=== PATIENT | female | born 1970 | race Caucasian/White ===

== ENCOUNTER → 2016-10-27 | Outpatient (CLI) | payer BC | LOC: FIMAGING 15:06 | PROVIDERS: ATTEND Orthopaedic Surgery | DX: Z47.1 Aftercare following joint replacement surgery (principal); Z96.651 Presence of right artificial knee joint ==

== ENCOUNTER 2016-12-02 05:56 | Inpatient (IN) | payer BC ==
[2016-12-02] MEDS ORDERED: FAMOTIDINE 20 MG TAB PO ONE (06:00)
[2016-12-02] MEDS ORDERED: TRANEXAMIC ACID 3,000 MG in NS 50 ML IRR ONE (06:00)
[2016-12-02] MEDS ORDERED: CEFAZOLIN 2 GM/DEXTR 100 ML IV ONE (06:00)
[2016-12-02] MEDS ORDERED: ACETAMINOPHEN 325 MG TAB PO ONE (06:00)
[2016-12-02] MEDS ORDERED: ROPI/epiNEPH/KETOROLAC JOINT COCKTAIL IU ONE (06:00)
[2016-12-02] MEDS ORDERED: CHLORHEXIDINE GLUC HIBICLENS 118 ML BTL TP ONE (06:00)
[2016-12-02] MEDS ORDERED: DEXAMETHASONE 4 MG/ML VIAL IVP ONE (06:00)
[2016-12-02] MEDS ORDERED: LR 1,000 ML IV ONE (06:25)
[2016-12-02] MEDS ORDERED: TRANEXAMIC ACID 3,000 MG/50 ML BAG IRR ONE (06:40)
[2016-12-02] MEDS ORDERED: VANCOMYCIN 1 GM VIAL ONE (06:41)
[2016-12-02] MEDS ORDERED: LIDOCAINE 1% 2 ML INJ ONE (06:51)
[2016-12-02] MEDS ORDERED: PROPOFOL/EMULSION 500 MG/50 ML BOTTLE IV ONE ×2 (07:05→08:21)
[2016-12-02] MEDS ORDERED: LIDOCAINE 2% 5 ML SDV ONE (07:05)
[2016-12-02] MEDS ORDERED: MIDAZOLAM 2 MG/2 ML VIAL ONE (07:07)
[2016-12-02] MEDS ORDERED: BUPIVACAINE 0.5% 30 ML SDV ONE (07:12)
[2016-12-02] MEDS ORDERED: fentaNYL 100 MCG/2 ML INJ ONE ×2 (07:48→09:14)
[2016-12-02] MEDS ORDERED: ONDANSETRON 4 MG/2 ML VIAL ONE (07:51)
[2016-12-02] MEDS ORDERED: BISACODYL 10 MG SUPP PR PRN (08:55)
[2016-12-02] MEDS ORDERED: TEMAZEPAM 15 MG CAP PO PRN (08:55)
[2016-12-02] MEDS ORDERED: METOCLOPRAMIDE 10 MG/2 ML VIAL IVP PRN (08:55)
[2016-12-02] MEDS ORDERED: POLYETHYLENE GLYCOL 3350 17 GM PKT PO PRN (08:55)
[2016-12-02] MEDS ORDERED: LACTULOSE 20 GM/30 ML UDCUP PO PRN (08:55)
[2016-12-02] MEDS ORDERED: ONDANSETRON 4 MG/2 ML VIAL IVP PRN (08:55)
[2016-12-02] MEDS ORDERED: DIPHENOXYLATE/ATROPINE LOMOTIL 1 TAB PO PRN (08:55)
[2016-12-02] MEDS ORDERED: ONDANSETRON DISINTEGRATING 4 MG TAB PO PRN (08:55)
[2016-12-02] MEDS ORDERED: PHARMACY PAIN CONSULT 1 EA MISC PRN (08:55)
[2016-12-02] MEDS ORDERED: diphenhydrAMINE 25 MG CAP PO PRN (08:55)
[2016-12-02] MEDS ORDERED: MAGNESIUM HYDROXIDE 30 ML UDCUP PO PRN (08:55)
[2016-12-02] MEDS ORDERED: PROMETHAZINE HCL 25 MG SUPPR PR PRN (08:55)
--- NOTE | 2016-12-02 08:55 | POSTOPPROG ---
Post Op Note Date of Operation: 12/02/16 Surgeon: Caroline Morton Tug Hand: jackie morton Anesthesiologist: dr. stauffer Anesthesia: Spinal, Other (Specify) (adductor canal block) Pre-op Diagnosis: right knee OA Post-op Diagnosis: sameq Indication: right knee pain due to OA that failed conservative measures Procedure: R TKA robot assisted Findings: severe knee OA Inf/Abcess present in the surg proc area at time of surgery?: No EBL: 50-100
[2016-12-02] MEDS ORDERED: traMADol 50 MG TAB PO PRN (08:57)
[2016-12-02] MEDS ORDERED: HYDROmorphONE/DILAUDID 2 MG/ML INJ ONE ×2 (09:20→10:04)
[2016-12-02] MEDS ORDERED: DIAZEPAM 10 MG/2 ML SYR ONE (10:04)
[2016-12-02] MEDS ORDERED: DIAZEPAM 10 MG/2 ML SYR IVP ONE (10:15)
[2016-12-02] MEDS: SENNOSIDES/DOCUSATE SODIUM TAB PO SCH ×2 (13:19→19:41)
[2016-12-02] MEDS: ACETAMINOPHEN 325 MG TAB PO SCH ×3 (13:19→23:59)
[2016-12-02] MEDS: ceFAZolin 2 GM/DEXTROSE 100 ML IV SCH ×2 (13:30→21:33)
[2016-12-02] MEDS: LR 1,000 ML IV SCH (13:30)
[2016-12-02] MEDS: oxyCODONE IR 5 MG TAB PO PRN ×4 (14:07→23:59)
[2016-12-02] MEDS: CYCLOBENZAPRINE 10 MG TAB PO PRN (19:41)
[2016-12-02] MEDS: ASPIRIN 325 MG TAB PO SCH (19:41)
[2016-12-02] MEDS: FAMOTIDINE 20 MG TAB PO SCH (19:42)
[2016-12-03] MEDS: LR 1,000 ML IV SCH (03:12)
[2016-12-03 04:46] LABS: HEMATOCRIT 27.8 % (38.0-47.0); HEMOGLOBIN 9.4 g/dL (12.6-16.3)
[2016-12-03] MEDS: CYCLOBENZAPRINE 10 MG TAB PO PRN (05:52)
[2016-12-03] MEDS: ACETAMINOPHEN 325 MG TAB PO SCH (05:52)
[2016-12-03] MEDS: oxyCODONE IR 5 MG TAB PO PRN (05:53)
[2016-12-03 07:44] VITALS: BP 96/58; PULSE 70; RESP 12; TEMP 98; O2SAT 95
[2016-12-03] MEDS: FAMOTIDINE 20 MG TAB PO SCH (08:13)
[2016-12-03] MEDS: SENNOSIDES/DOCUSATE SODIUM TAB PO SCH (08:13)
[2016-12-03] MEDS: ASPIRIN 325 MG TAB PO SCH (08:13)
--- NOTE | 2016-12-03 08:46 | SOAPPROG ---
SOAP Progress Note Assessment/Plan: Assessment: Mel is doing well POD 1 s/p R TKA 1) pain management: pain is well controlled on oral pain meds. patient had some pain initially, believe flexeril has helped. 2) anemia: level expected initially postop, asymptomatic, continue to monitor 3) VTE ppx: recommend aspirin daily for 3 weeks. cont ESAU reardon. SCDs while in the hospital 4) d/c planning: d/c to home today pending release from PT. 5) clicking and grinding sensation: spoke with nurse yesterday about patient's concern for clicking sensation and grinding while walking. This is normal postop TKA. Dr. Card discussed with patient this am. Plan: 12/03/16 08:43 Subjective: Mel is doing ok this morning, denies SOB, chest pain and n/v. expressed concern for sensation of grinding and clicking in knee while working with PT yesterday. Objective: Vital Signs Temp Pulse Resp BP Pulse Ox 36.6 C 70 12 96/58 L 95 12/03/16 07:43 12/03/16 07:43 12/03/16 07:43 12/03/16 07:43 12/03/16 07:43 Laboratory Results 12/03/16 04:22 12/02/16 12/03/16 12/04/16 05:59 05:59 05:59 Intake Total 3480 Output Total 1680 Balance 1800 RLE: incision dressing is clean and dry, NVI, +pf/df ICD10 Worksheet Patient Problems: Problems Problem Status Onset Primary localized osteoarthritis of right knee Acute
[2016-12-03] MEDS ORDERED: HYDROXYCHLOROQUINE SULFATE 200 MG TAB PO SCH (09:00)
--- NOTE | 2016-12-04 10:21 | GOP ---
[f rep st] OPERATIVE REPORT DATE OF OPERATION: 12/02/2016 SURGEON: Betsy Card MD INSTRUCTIONAL TECHNOLOGY COORDINATOR: MARYAM Dominguez. ANESTHESIA: Spinal. PREOPERATIVE DIAGNOSIS: Right knee osteoarthritis. POSTOPERATIVE DIAGNOSIS: Right knee osteoarthritis. PROCEDURE PERFORMED: Right total knee arthroplasty with computer navigation and robotic assist. FINDINGS/PATHOLOGY: Severe medial and patellofemoral osteoarthritis. ESTIMATED BLOOD LOSS: 30 cc. INDICATIONS: This is a 46-year-old female with severe and progressive pain and deformity of the right knee unresponsive to conservative care. The risks and benefits of surgical intervention were explained in detail. DESCRIPTION OF PROCEDURE: The patient was brought to the operative room and placed on the table in the supine position. Spinal anesthesia was induced without difficulty. A pneumatic tourniquet was applied about the right proximal thigh, and the leg was prepped and draped in a sterile fashion. The leg yanes was applied. After exsanguination by elevation the tourniquet was inflated to 275 mm of mercury. Incision was made anterior medial from the tibial tuberosity to a point 2 cm proximal to the superior pole of the patella. Medial parapatellar arthrotomy was carried out from the superior pole of the patella and posteriorly in line with the fibers of the Type II VMO. The medial collateral ligament was elevated and the infrapatellar fat pad was resected. The patella was everted and the articular surface was excised. A 35 mm patellar button was placed. Attention was turned first to the distal aspect of the right femur. At 3 cm proximal to the medial rise of the femur, 2 percutaneous half pins were placed for fixation of the femoral array. In a similar fashion, 2 pins were placed anteromedial on the tibia for fixation of the tibial array. External land marking and registration of the hip center was performed without difficulty. Internal femoral and tibial registration was carried out without difficulty and the femoral and tibial checkpoints were placed and verified for accuracy. Attention was turned to the femur. The foot print for the size 5 femoral component was cut with the saw using the giftee robotic system and verified for accuracy against the CT based plan. In a similar fashion, saw was used to cut the footprint for the size 5 tibial component using the giftee system and verified for accuracy against the CT based plan. The tibial articular surface was excised without difficulty, followed by the intercondylar box cut. The knee was extended and the remnants of the medial and lateral meniscus were excised. The posterior capsule was injected with ropivacaine, epinephrine and Toradol. A size 5 MIS mini-keel tibial tray was positioned. Trial reduction was then carried out. There was excellent range of motion, alignment, and stability using the 9 mm polyethylene. All trials were then removed. The joint was thoroughly irrigated and carefully dried. Two packages of cement and 2 grams of vancomycin were mixed in the vacuum mixer and placed on the fixation surfaces of all surfaces of the components. The components were implanted and all excess cement was thoroughly removed. The permanent 9 mm polyethylene was placed without difficulty. The tourniquet was deflated and all bleeders were coagulated. The wound was thoroughly irrigated and closed using interrupted sutures of 2-0 Vicryl for the joint capsule. The subcu was closed with 3-0 Vicryl and the skin with 4-0 Monocryl. Dermabond and Steri-Strips were applied followed by a compressive dressing. The patient was then moved from the operating room to the recovery room in good condition, having tolerated the procedure well. /[id number]/MODL MTDD
== END 2016-12-03 09:07 | disposition home or self-care (01) | DRG 470 ==
LOC: F3N 05:56
PROVIDERS: ADMIT Orthopaedic Surgery; ATTEND Orthopaedic Surgery
PROC: 0SRC0J9 Replacement of Right Knee Joint with Synthetic Substitute, Cemented, Open Approach (ICD-10-PCS; principal; 2016-12-02 07:15)
DX: M17.11 Unilateral primary osteoarthritis, right knee (principal)
CPT/HCPCS: 97116-GP; 97161-GP; 97165-GO; C1713; J0171; J0690; J1100; J1170; J1885; J2250; J2405; J2704; J2795; J3010; J3370

== ENCOUNTER 2016-12-04 02:58 | Observation (INO) | payer BC ==
[2016-12-04] MEDS ORDERED: HYDROmorphONE/DILAUDID 1 MG/ML SYR IVP ONE ×2 (03:23→03:50)
[2016-12-04] MEDS ORDERED: NS 1,000 ML IV ONE (03:23)
[2016-12-04] MEDS ORDERED: ONDANSETRON 4 MG/2 ML VIAL IVP ONE (03:23)
--- NOTE | 2016-12-04 03:29 | EDPHY ---
H & P Stated Complaint: severe pain in L knee post knee replace, d/c'd yesterday HPI/ROS: HPI CHIEF COMPLAINT: Right knee pain HISTORY OF PRESENT ILLNESS: This patient very pleasant 46-year-old female, significant past medical history for rheumatoid arthritis, had a total knee replacement done by Dr. Glen Card on Monday. Patient was discharged today on Monday. She tells me that right before getting discharge she was using the bathroom and developed some right knee pain. The pain persisted while at home progressively worse over Monday into Monday night. She now tells me that she had to come to the emergency room because her pain is 10/10. She has been taking oxycodone and tramadol. However has minimal relief. She denies fever, drainage, redness or direct trauma to her knee. She tells me her pain is 10/10. Unable to move her knee. Past Medical History: Rheumatoid arthritis Past Surgical History: Recent right knee surgery Social History: Denies daily use of drugs alcohol tobacco Family History: Noncontributory ROS REVIEW OF SYSTEMS: A comprehensive 10 point review of systems is otherwise negative aside from elements mentioned in the history of present illness. Exam Constitutional triage nursing summary reviewed, vital signs reviewed, awake/ alert. Eyes normal conjunctivae and sclera, EOMI, PERRLA. HENT normal inspection, atraumatic, moist mucus membranes, no epistaxis, neck supple/ no meningismus, no raccoon eyes. Respiratory clear to auscultation bilaterally, normal breath sounds, no respiratory distress, no wheezing. Cardiovascular rate normal, regular rhythm, no murmur, no edema, distal pulses normal. Gastrointestinal soft, non-tender, no rebound, no guarding, normal bowel sounds, no distension, no pulsatile mass. Genitourinary no CVA tenderness. Musculoskeletal right leg: Good sensation, good DP, warm extremity, no significant redness, or swelling of the extremity, no significant drainage, tender palpation with range of motion of the right knee minimal, compartments are soft. no midline vertebral tenderness, full range of motion, no calf swelling, no tenderness of extremities, no meningismus, good pulses, neurovascularly intact. Skin pink, warm, & dry, no rash, skin atraumatic. Neurologic awake, alert and oriented x 3, AAOx3, moves all 4 extremities equally, motor intact, sensory intact, CN II-XII intact, normal cerebellar, normal vision, normal speech. Psychiatric normal mood/affect. Heme/Lymph/Immune no lymphadenopathy. Differential Diagnosis: Includes but is not limited to in a particular order, postoperative pain control, hematoma, DVT, compartment syndrome, infection Medical Decision Making: Plan for this patient x-ray right knee, acute pain control with IV Dilaudid, ultrasound to rule out DVT. Check basic blood work. Also will notify Dr. Glen Card. Re-evaluation: ED x-ray right knee three view. Hardware appears to be in place. No gas. X- ray interpreted by myself. 0356AM: Re-evaluation after 2 mg IV Dilaudid. Patient still has pain. I have ordered her also 10 mg p.o. Flexeril. Blood work has been reviewed as well as x -ray. Ultrasound results are pending for DVT. 0357: I did speak with Jessica Card on-call for [facility] for [facility] I explained the patient would like to be admitted for acute pain control. And despite me given her multiple rounds of IV Dilaudid she still has 10/10 pain. There are no signs of compartment syndrome her compartments are soft she is neurovasculary intact. Patient tells me her pain is 10/10 she is requesting hospital admission which I think is reasonable given postoperative pain. Jessica Card has accepted this patient for observation for acute pain control. Ultrasound of the right lower extremity. The results of the study are negative for acute DVT. I discussed the results of this study with the radiologist Dr. Barker. 0400AM: I updated the patient and there really that should be admitted for acute pain control. Source: Patient - Personal History Tetanus Vaccine Date: 2008 - Medical/Surgical History Hx Asthma: No Hx Chronic Respiratory Disease: No Hx Diabetes: No Hx Cardiac Disease: No Hx Renal Disease: No Hx Cirrhosis: No Hx Alcoholism: No Hx HIV/AIDS: No Hx Splenectomy or Spleen Trauma: No Other PMH: intermess bladder mess removed - ortho - rt knee / hyst - Social History Smoking Status: Never smoked Constitutional: Initial Vital Signs Temperature (C) 37.2 C 12/04/16 03:05 Heart Rate 107 H 12/04/16 03:05 Respiratory Rate 22 H 12/04/16 03:05 Blood Pressure 137/105 H 12/04/16 03:05 O2 Sat (%) 96 12/04/16 03:05 O2 Delivery Mode Room Air Allergies/Adverse Reactions: No Known Allergies Allergy (Verified 12/04/16 03:08) Home Medications: Medication Instructions Recorded Herbals/Supplements -Info Only 1 ea PO DAILY 11/15/16 Hydroxychloroquine Sulfate 200 mg PO BID 11/15/16 [Plaquenil 200 mg (*)] Multivitamins [Multivitamin (*)] 1 each PO DAILY 11/15/16 Zolpidem Tartrate [Ambien 5MG (*)] 5 - 10 mg PO HS PRN 11/15/16 traMADol [Ultram 50 mg (*)] 50 - 100 mg PO TID PRN 11/15/16 Acetaminophen [Tylenol 325mg (*)] 650 mg PO Q6HRS #0 tab 12/03/16 Aspirin [Aspirin 325 mg (*)] 325 mg PO DAILY #0 tab 12/03/16 Sennosides/Docusate Sodium 1 - 2 tab PO BID #0 tab 12/03/16 [Senokot-S] celeCOXIB [Celebrex (*)] 200 mg PO DAILY #0 cap 12/03/16 oxyCODONE IR [Oxycodone Ir (*)] 5 - 10 mg PO Q3HRS PRN #0 tab 12/03/16 Medical Decision Making - Data Points Laboratory Results: Laboratory Results 12/04/16 03:05 12/04/16 12/04/16 03:05 03:05 WBC 6.99 10^3/uL 10^3/uL (3.80-9.50) RBC 3.79 10^6/uL L 10^6/uL (4.18-5.33) Hgb 11.6 g/dL L g/dL (12.6-16.3) Hct 35.0 % L % (38.0-47.0) MCV 92.3 fL fL (81.5-99.8) MCH 30.6 pg pg (27.9-34.1) MCHC 33.1 g/dL g/dL (32.4-36.7) RDW 12.2 % % (11.5-15.2) Plt Count 219 10^3/uL 10^3/uL (150-400) MPV 9.6 fL fL (8.7-11.7) Neut % (Auto) 55.3 % % (39.3-74.2) Lymph % (Auto) 34.8 % % (15.0-45.0) [place] % (Auto) 7.0 % % (4.5-13.0) Eos % (Auto) 2.0 % % (0.6-7.6) Baso % (Auto) 0.6 % % (0.3-1.7) Nucleat RBC Rel Count 0.0 % % (0.0-0.2) Absolute Neuts (auto) 3.87 10^3/uL 10^3/uL (1.70-6.50) Absolute Lymphs (auto) 2.43 10^3/uL 10^3/uL (1.00-3.00) Absolute Monos (auto) 0.49 10^3/uL 10^3/uL (0.30-0.80) Absolute Eos (auto) 0.14 10^3/uL 10^3/uL (0.03-0.40) Absolute Basos (auto) 0.04 10^3/uL 10^3/uL (0.02-0.10) Absolute Nucleated RBC 0.00 10^3/uL 10^3/uL (0-0.01) Immature Gran % 0.3 % % (0.0-1.1) Immature Gran # 0.02 10^3/uL 10^3/uL (0.00-0.10) Sodium Pending Potassium Pending Chloride Pending Carbon Dioxide Pending Anion Gap Pending BUN Pending Creatinine Pending Estimated GFR Pending Glucose Pending Calcium Pending Medications Given: Discontinued Medications Hydromorphone HCl (Dilaudid) 1 mg IVP EDNOW ONE Stop: 12/04/16 03:24 Last Admin: 12/04/16 03:30 Dose: 1 mg Hydromorphone HCl (Dilaudid) 1 mg IVP EDNOW ONE Stop: 12/04/16 03:51 Last Admin: 12/04/16 03:53 Dose: 1 mg Sodium Chloride (Ns) 1,000 mls @ 0 mls/hr IV ONCE ONE PRN Reason: Wide Open Stop: 12/04/16 03:24 Last Admin: 12/04/16 03:30 Dose: 1,000 mls Ondansetron HCl (Zofran) 4 mg IVP EDNOW ONE Stop: 12/04/16 03:24 Last Admin: 12/04/16 03:30 Dose: 4 mg Departure - Departure Disposition: [facility] Inpatient Acute Clinical Impression: Acute post-operative pain Condition: Fair Referrals: Maria Elena Calvillo MD [Primary Care Provider] - As per Instructions
[2016-12-04 03:42] LABS: % IMMATURE GRANULYOCYTES 0.3 % (0.0-1.1); ABSOLUTE IMMATURE GRANULOCYTES 0.02 10^3/uL (0.00-0.10); ADD DIFF? NO; ADD MORPH? NO; ADD SCAN? NO; ATYPICAL LYMPHOCYTE FLAG 0 (0-99); FRAGMENT RBC FLAG 0 (0-99); HEMOGLOBIN 11.6 g/dL (12.6-16.3); LEFT SHIFT FLG 0 (0-99); LIPEMIA HEMOLYSIS FLAG 80 (0-99); MEAN CELL HEMOGLOBIN 30.6 pg (27.9-34.1); MEAN CELL HEMOGLOBIN CONCENTR. 33.1 g/dL (32.4-36.7); MEAN CELL VOLUME 92.3 fL (81.5-99.8); MEAN PLATELET VOLUME 9.6 fL (8.7-11.7); PLATELET CLUMPS FLAG 20 (0-99); PLATELET COUNT 219 10^3/uL (150-400); RED BLOOD CELL COUNT 3.79 10^6/uL (4.18-5.33); RED CELL DISTRIBUTION WIDTH 12.2 % (11.5-15.2)
[2016-12-04] MEDS ORDERED: HYDROmorphONE/DILAUDID 1 MG/ML SYR ONE (03:50)
[2016-12-04] MEDS ORDERED: CYCLOBENZAPRINE 10 MG TAB PO ONE (03:54)
[2016-12-04] MEDS ORDERED: fentaNYL 100 MCG/2 ML INJ IVP ONE ×2 (04:02→05:06)
[2016-12-04 04:03] LABS: ANION GAP 13 mEq/L (8-16); CARBON DIOXIDE 26 mEq/l (22-31); CHLORIDE 105 mEq/L (97-110); CREATININE 0.7 mg/dL (0.6-1.0); GLOMERULAR FILTRATION RATE > 60; GLUCOSE 96 mg/dL (70-100); POTASSIUM 4.3 mEq/L (3.5-5.2); SODIUM 144 mEq/L (134-144)
[2016-12-04] MEDS ORDERED: fentaNYL 100 MCG/2 ML INJ ONE (05:02)
[2016-12-04] MEDS: oxyCODONE IR 5 MG TAB PO PRN ×5 (06:18→21:19)
[2016-12-04] MEDS ORDERED: ONDANSETRON DISINTEGRATING 4 MG TAB PO PRN (09:42)
[2016-12-04] MEDS ORDERED: ONDANSETRON 4 MG/2 ML VIAL IVP PRN (09:42)
[2016-12-04] MEDS: ASPIRIN 325 MG TAB PO SCH (09:59)
[2016-12-04] MEDS: ACETAMINOPHEN 325 MG TAB PO SCH ×4 (09:59→21:18)
[2016-12-04] MEDS: PREGABALIN 100 MG CAP PO SCH ×2 (09:59→21:20)
[2016-12-04] MEDS ORDERED: ZOLPIDEM TARTRATE 5 MG TAB PO PRN (10:02)
--- NOTE | 2016-12-04 10:41 | GHP ---
[f rep st] HISTORY AND PHYSICAL DATE OF ADMISSION: 12/04/2016 CHIEF COMPLAINT: Right knee pain worsening since discharge from the hospital, status post right total knee arthroplasty. HISTORY OF PRESENT ILLNESS: A 46-year-old female with a past medical history significant for rheumatoid arthritis, had a knee replacement by Dr. Card on December 02. Patient was discharged from the hospital on Monday. Per patient, she was doing well when she was discharged, pain was controlled, and passed physical therapy. The patient states the pain continued to get worse Monday afternoon. She increased her oxycodone IR to 5-10 mg Q3H to 15 mg q.3 hours with little relief in pain. She presented to the emergency room overnight as she says the narcotic pain meds did not alleviate pain. Prior to surgery, she was taking 50mg tabs of tramadol 2-6 pills daily. She says oxycodone gives no pain relief. She complains that her main description of pain is a burning sensation on the anterior right knee. Patients states she denied further IV pain meds in the ED due to limited improvement in pain and the feeling of being drugged was worse. She denies fever, chills, drainage, or any trauma, trips or falls. PAST MEDICAL HISTORY: Significant for rheumatoid arthritis, currently on Plaquenil. PAST SURGICAL HISTORY: Right total knee arthroplasty by Dr. Card on December 02. SOCIAL HISTORY: Lives with her . Denies daily use of drugs, alcohol, tobacco. 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 REVIEW OF SYSTEMS: HPI for pertinent items. PHYSICAL EXAM: CONSTITUTIONAL: The patient is resting comfortably in bed. MUSCULOSKELETAL: Right knee has moderate swelling. No ecchymosis. Pulses are intact distal to her right knee. She has some pain with passive flexion of the right knee. Sensation is intact. Moderate to severe tenderness to palpation at distal IT band. Her incision dressing is clean and dry. No drainage noted. IMAGING: X-rays were reviewed. unchanged compared to postoperative xrays in the PACU yesterday. LAB: WBC WNL, H/H ASSESSMENT: Patient is a 46-year-old, status post right knee arthroplasty with neuralgia and pain management issues. PLAN: Recommend the patient start Lyrica 100 mg twice daily. Also recommend initiating OxyContin 10 mg twice daily along with oxycodone IR 5-10 mg q.3 hours fpr breakthrough along with Flexeril 10 mg q.8 hours. Ordered physical therapy to work with her this afternoon. Recommend ice, elevation, rest. Discussed with the patient that as the adductor canal block wears off (usually 24-30 hours from procedure) coincided with the increase in pain yesterday. I also think patient is having postop neuralgia pain and that Lyrica is going to be the thing that helps her the most. I discussed with the patient and her that it can take some time for Lyrica to get up to therapeutic dose and she needs to be a little patient in that period of time. Patient was discussed with Dr. Card. He agrees with the assessment and plan. If you have any further questions, do not hesitate to contact us. We will manage her stay in the hospital. /[id number]/MODL MTDD
[2016-12-04] MEDS: SENNOSIDES/DOCUSATE SODIUM TAB PO SCH (11:23)
[2016-12-04] MEDS: CYCLOBENZAPRINE 10 MG TAB PO PRN ×2 (11:24→21:18)
[2016-12-04] MEDS: traMADol 50 MG TAB PO PRN ×3 (11:24→17:57)
[2016-12-04] MEDS: HYDROXYCHLOROQUINE SULFATE 200 MG TAB PO SCH ×2 (12:35→21:19)
[2016-12-04] MEDS ORDERED: SENNOSIDES/DOCUSATE SODIUM TAB PO SCH (21:00)
[2016-12-05] MEDS: oxyCODONE IR 5 MG TAB PO PRN ×9 (00:06→21:27)
[2016-12-05] MEDS: ACETAMINOPHEN 325 MG TAB PO SCH ×6 (02:40→21:27)
[2016-12-05] MEDS: CYCLOBENZAPRINE 10 MG TAB PO PRN ×3 (05:23→20:16)
[2016-12-05] MEDS: HYDROXYCHLOROQUINE SULFATE 200 MG TAB PO SCH ×2 (08:32→20:15)
[2016-12-05] MEDS: ASPIRIN 325 MG TAB PO SCH (08:32)
[2016-12-05] MEDS: SENNOSIDES/DOCUSATE SODIUM TAB PO SCH (08:32)
[2016-12-05] MEDS: PREGABALIN 100 MG CAP PO SCH ×2 (08:32→20:16)
[2016-12-05] MEDS ORDERED: POLYETHYLENE GLYCOL 3350 17 GM PKT ONE (09:10)
--- NOTE | 2016-12-05 14:15 | SOAPPROG ---
SOAP Progress Note Assessment/Plan: Assessment: readmit due to pain control s/p TKA doing better but still nervous cont pain meds and PT d/c when able Plan: 12/05/16 14:14 Subjective: RLE: dressing dry, no signs of infection Objective: Vital Signs Temp Pulse Resp BP Pulse Ox 36.8 C 78 15 124/71 H 95 12/05/16 11:57 12/05/16 11:57 12/05/16 11:57 12/05/16 11:57 12/05/16 11:57 12/04/16 12/05/16 12/06/16 05:59 05:59 05:59 Intake Total 1000 1000 Output Total 100 Balance 900 1000 ICD10 Worksheet Patient Problems: Problems Problem Status Onset Acute post-operative pain Acute Primary localized osteoarthritis of right knee Acute
[2016-12-05] MEDS: traMADol 50 MG TAB PO PRN (17:18)
[2016-12-06] MEDS: oxyCODONE IR 5 MG TAB PO PRN ×5 (00:32→12:25)
[2016-12-06] MEDS: ACETAMINOPHEN 325 MG TAB PO SCH ×3 (01:48→11:00)
[2016-12-06] MEDS: CYCLOBENZAPRINE 10 MG TAB PO PRN ×2 (03:19→10:59)
[2016-12-06] MEDS: SENNOSIDES/DOCUSATE SODIUM TAB PO SCH (08:45)
[2016-12-06] MEDS: PREGABALIN 100 MG CAP PO SCH (08:45)
[2016-12-06] MEDS: HYDROXYCHLOROQUINE SULFATE 200 MG TAB PO SCH (08:45)
[2016-12-06] MEDS: ASPIRIN 325 MG TAB PO SCH (08:45)
[2016-12-06 08:56] VITALS: RESP 16
--- NOTE | 2016-12-06 10:50 | SOAPPROG ---
SOAP Progress Note Assessment/Plan: Assessment: Mel is doing better s/p R TKA and acute neuralgia postop 1)pain management: gave script to patient for oxycontin, continue oxycodone IR 1 -2 tabs Q3H PRN, continue cyclobenzaprine and lyrica. Scripts sent to patient' s pharmacy. 2) VTE ppx: aspirin 325 mg daily 3) neuralgia: patient is doing well on lyrica. states burning sensation has improved significantly. Recommend patient stay on lyrica 4) Anemia: level expected initially postop 5) d/c planning: d/c to home today Plan: 12/06/16 10:47 Subjective: Mel is doing better today, neuralgia pain has improved, denies SOB, chest pain and N/V. Objective: Vital Signs Temp Pulse Resp BP Pulse Ox 37.1 C 103 H 16 117/70 92 12/06/16 08:54 12/06/16 08:54 12/06/16 08:54 12/06/16 08:54 12/06/16 08:54 12/05/16 12/06/16 12/07/16 05:59 05:59 05:59 Intake Total 1000 350 Balance 1000 350 RLE: incision dressing is clean and dry, NVI, +pf/df ICD10 Worksheet Patient Problems: Problems Problem Status Onset Acute post-operative pain Acute Primary localized osteoarthritis of right knee Acute
[2016-12-06 11:55] VITALS: BP 101/66; PULSE 85; TEMP 98.2; O2SAT 96
== END 2016-12-06 12:43 | disposition home or self-care (01) ==
LOC: F3N 05:15
PROVIDERS: ADMIT Orthopaedic Surgery; ATTEND Orthopaedic Surgery
DX: G89.18 Other acute postprocedural pain (principal); Z96.651 Presence of right artificial knee joint
CPT/HCPCS: 73562; 93971; 97110; 97116; 97161; G0378; 96374; J1170; J2405; J3010

== ENCOUNTER 2016-12-11 11:58 | Emergency (ER) | payer BC ==
[2016-12-11 12:03] VITALS: RESP 16
--- NOTE | 2016-12-11 12:45 | EDPHY ---
H & P Time Seen by Provider: 12/11/16 12:36 HPI/ROS: CHIEF COMPLAINT: Right leg injury HISTORY OF PRESENT ILLNESS: This 46-year-old woman had a right total knee replacement by Dr. Card on December 02. She had a readmission to the hospital on December 04 for pain control, history and physical personally reviewed. Today at about 11:30 a.m. she was walking outside and lost her balance and twisted and landed on her left side. She has pain in her right knee which extends down her leonard toward her ankle and foot. Worse with movement or palpation. Worse just after the fall. REVIEW OF SYSTEMS: No weakness or numbness in the foot, no bleeding from the wound, did not land directly on the knee, no right hip symptoms. PAST MEDICAL HISTORY: Rheumatoid arthritis and right knee replacement as above. Social history: General Appearance: Alert and conversant, cooperative. Right knee incision dressing is clean dry and intact. Noted to be tachycardic. No pain on rotation of the hip. Motion of the knee is flexion but not to 90, extension to 170. Tenderness to palpation on the distal tibia anteriorly. Swelling and tenderness on the lateral malleolus and medial malleolus. No foot or 5th metatarsal tenderness. Normal capillary refill and dorsalis pedis pulse, normal motor of the toes and normal sensation to light touch in the foot. Skin intact without laceration or bleeding. Compartments soft to palpation. Emergency Department course/MDM: Plan for x-ray of the right knee, tib-fib, ankle, and foot Results discussed at 1:05 p.m., patient has adequate pain meds at home per her. Smoking Status: Never smoked Constitutional: Initial Vital Signs Temperature (C) 36.8 C 12/11/16 12:01 Heart Rate 126 H 12/11/16 12:01 Respiratory Rate 16 12/11/16 12:01 Blood Pressure 135/92 H 12/11/16 12:01 O2 Sat (%) 96 12/11/16 12:01 O2 Delivery Mode Room Air Allergies/Adverse Reactions: No Known Allergies Allergy (Verified 12/04/16 03:08) Home Medications: Medication Instructions Recorded Herbals/Supplements -Info Only 1 ea PO DAILY 11/15/16 Hydroxychloroquine Sulfate 200 mg PO BID 11/15/16 [Plaquenil 200 mg (*)] Multivitamins [Multivitamin (*)] 1 each PO DAILY 11/15/16 Zolpidem Tartrate [Ambien 5MG (*)] 5 - 10 mg PO HS PRN 11/15/16 traMADol [Ultram 50 mg (*)] 50 - 100 mg PO TID PRN 11/15/16 Acetaminophen [Tylenol 325mg (*)] 650 mg PO Q6HRS #0 tab 12/03/16 Aspirin [Aspirin 325 mg (*)] 325 mg PO DAILY #0 tab 12/03/16 Sennosides/Docusate Sodium 1 - 2 tab PO BID #0 tab 12/03/16 [Senokot-S] celeCOXIB [Celebrex (*)] 200 mg PO DAILY #0 cap 12/03/16 oxyCODONE IR [Oxycodone Ir (*)] 5 - 10 mg PO Q3HRS PRN #0 tab 12/03/16 Acetaminophen [Tylenol 325mg (*)] 650 mg PO Q4HRS #0 tab 12/06/16 Aspirin [Aspirin 325 mg (*)] 325 mg PO DAILY #0 tab 12/06/16 Cyclobenzaprine [Flexeril 10 MG 10 mg PO Q8 PRN #0 tab 12/06/16 (*)] Pregabalin [Lyrica 100mg (*)] 100 mg PO BID #0 cap 12/06/16 celeCOXIB [Celebrex (*)] 200 mg PO DAILY #0 cap 12/06/16 oxyCODONE CR [Oxycontin] 10 mg PO BID #0 tab 12/06/16 oxyCODONE IR [Oxycodone Ir (*)] 5 - 10 mg PO Q3 PRN #0 tab 12/06/16 MDM/Departure - Depart Disposition: Home, Routine, Self-Care Clinical Impression: Ankle sprain Qualifiers: Encounter type: initial encounter Involved ligament of ankle: unspecified ligament Laterality: right Qualified Code(s): S93.401A - Sprain of unspecified ligament of right ankle, initial encounter Knee pain, right Qualifiers: Chronicity: acute Qualified Code(s): M25.561 - Pain in right knee Condition: Good Instructions: Ankle Sprain (ED), Knee Pain (ED) Referrals: Maria Elena Calvillo MD [Primary Care Provider] - As per Instructions Caroline Card MD [Medical Doctor] - As per Instructions
[2016-12-11 13:31] VITALS: BP 123/81; PULSE 100; TEMP 98.1; O2SAT 93
== END 2016-12-11 13:24 | disposition home or self-care (01) ==
DX: S93.401A Sprain of unspecified ligament of right ankle, initial encounter (principal); S89.91XA Unspecified injury of right lower leg, initial encounter; Z79.82 Long term (current) use of aspirin; Z96.651 Presence of right artificial knee joint; W18.39XA Other fall on same level, initial encounter; Y99.8 Other external cause status; Y93.01 Activity, walking, marching and hiking

== ENCOUNTER 2017-03-21 10:44 | Observation (INO) | payer BC ==
--- NOTE | 2017-03-21 11:03 | CPEKG ---
Heart Rate: 63 RR Interval: 952 P-R Interval: 164 QRSD Interval: 96 QT Interval: 404 QTC Interval: 414 P [place]: 65 QRS [place]: 75 T Wave [place]: 35 EKG Severity - NORMAL ECG - EKG Impression: SINUS RHYTHM Electronically Signed By: Fidel Elmore 21-Mar-2017 14:15:25
[2017-03-21 11:16] LABS: % IMMATURE GRANULYOCYTES 0.2 % (0.0-1.1); ABSOLUTE IMMATURE GRANULOCYTES 0.01 10^3/uL (0.00-0.10); ADD DIFF? NO; ADD MORPH? NO; ADD SCAN? NO; ATYPICAL LYMPHOCYTE FLAG 0 (0-99); FRAGMENT RBC FLAG 0 (0-99); HEMATOCRIT 39.3 % (38.0-47.0); HEMOGLOBIN 13.4 g/dL (12.6-16.3); LEFT SHIFT FLG 0 (0-99); LIPEMIA HEMOLYSIS FLAG 90 (0-99); MEAN CELL HEMOGLOBIN 30.1 pg (27.9-34.1); MEAN CELL HEMOGLOBIN CONCENTR. 34.1 g/dL (32.4-36.7); MEAN CELL VOLUME 88.3 fL (81.5-99.8); MEAN PLATELET VOLUME 8.9 fL (8.7-11.7); PLATELET CLUMPS FLAG 0 (0-99); PLATELET COUNT 249 10^3/uL (150-400); RED BLOOD CELL COUNT 4.45 10^6/uL (4.18-5.33); RED CELL DISTRIBUTION WIDTH 12.8 % (11.5-15.2)
[2017-03-21 11:22] LABS: ANION GAP 10 mEq/L (8-16); CALCIUM 9.1 mg/dL (8.5-10.4); CARBON DIOXIDE 28 mEq/l (22-31); CHLORIDE 103 mEq/L (97-110); CREATININE 0.7 mg/dL (0.6-1.0); GLOMERULAR FILTRATION RATE > 60; GLUCOSE 97 mg/dL (70-100); SODIUM 141 mEq/L (134-144)
[2017-03-21 11:24] LABS: INR 0.97 (0.83-1.16); PROTIME(PATIENT) 12.8 SEC (12.0-15.0)
[2017-03-21 11:25] LABS: APTT 25.4 SEC (23.0-38.0)
[2017-03-21 11:34] LABS: TROPONIN I < 0.012 ng/mL (0.000-0.034)
--- NOTE | 2017-03-21 11:51 | EDPHY ---
H & P Stated Complaint: 2 WEEKS GENERALIZED CP WITH EXERTION/WORSE LAST NIGHT/PCP EKG WNL - Personal History LMP (Females 10-55): Hysterectomy Current Tetanus/Diphtheria Vaccine: Yes Tetanus Vaccine Date: 2008 - Medical/Surgical History Hx Asthma: No Hx Chronic Respiratory Disease: No Hx Diabetes: No Hx Cardiac Disease: No Hx Renal Disease: No Hx Cirrhosis: No Hx Alcoholism: No Hx HIV/AIDS: No Hx Splenectomy or Spleen Trauma: No Other PMH: intermess bladder mess removed - ortho - rt knee / hyst - Social History Smoking Status: Never smoked Time Seen by Provider: 03/21/17 11:06 Constitutional: Initial Vital Signs Temperature (C) 36.8 C 03/21/17 10:49 Heart Rate 69 03/21/17 10:49 Respiratory Rate 18 03/21/17 10:49 Blood Pressure 114/76 03/21/17 10:49 O2 Sat (%) 98 03/21/17 10:49 O2 Delivery Mode Room Air Allergies/Adverse Reactions: No Known Allergies Allergy (Verified 03/21/17 10:47) Home Medications: Medication Instructions Recorded Omeprazole 03/21/17 Medical Decision Making - Diagnostics Imaging: Discussed imaging studies w/ scallop binder Radiologist, I viewed and interpreted images myself - Diagnostics Imaging Results: Imaging Impressions Chest/Thorax CTA 03/21/17 11:43 Impression: 1. No visible pulmonary embolus. 2. 1-cm left thyroid nodule. Thyroid ultrasound is recommended per [employer] recommendations. 3. Additional findings as above. Findings discussed with Fidel Elmore MD, 03/21/2017, at 1250 hours. ED Course/Re-evaluation: CHIEF COMPLAINT: Chest Pain HISTORY OF PRESENT ILLNESS: The patient is a 46 y/o female arriving at the referral of her PCP for intermittent and progressively worsening exertional shortness of breath, fatigue, and chest pain for the last couple weeks. She has a history of degenerative joint disease and arthritis of unclear etiology that is followed by her certified credit counselor. She notes she recently discontinued her Plaquenil. During episodes she can experience a combination of chest pain, shortness of breath, throat tightness, lightheadedness, sensation of being off- balance, nausea, and an overwhelming sense of fatigue. Last night she was walking up the stairs while carrying her granddaughter and became significantly dyspneic with associated with chest pain. She took 324mg PO aspirin, but ultimately decided to wait until her PCP visit this morning for evaluation. This morning she was referred on to the ED for cardiopulmonary work up. She has had no prior cardiac work up apart from lipid panels and notes she had a mildly elevated LDL in August. She had a knee replacement surgery 3.5 months ago. She has a strong family history of cardiac disease on her maternal side, though she reports they were morbidly obese and smokers. REVIEW OF SYSTEMS: A 10 point review of systems was performed and is negative with the exception of the elements mentioned in the history of present illness. PHYSICAL EXAM: General Appearance: Alert, well hydrated, appropriate, and non-toxic appearing. Head: Atraumatic without scalp tenderness or obvious injury Eyes: Pupils equal, round, reactive to light and accommodation, EOMI, no trauma , no injection. Nose: Atraumatic, no rhinorrhea, clear. Throat: Mucus membranes moist. Neck: Supple, non-tender, no lymphadenopathy. Respiratory: No retractions, no distress, no wheezes, and no accessory muscle use. Lungs are clear to auscultation bilaterally. Cardiovascular: Regular rate and rhythm, no murmurs, rubs, or gallops. Good capillary refill all extremities. Gastrointestinal: Abdomen is soft, non-tender, non-distended, no masses, no rebound, no guarding, no peritoneal signs. Musculoskeletal: Normal active ROM of all extremities, atraumatic. Neurological: Alert, appropriate, and interactive. Nonfocal neuro exam. Skin: No rashes, good turgor, no nodules on palpation. PAST MEDICAL HISTORY: Plaquenil for Osteoarthritis, total right knee replacement 12/07, elevated DARLING level. PAST SURGICAL HISTORY: Total right knee replacement, bladder mesh, multiple orthopedic surgeries. SOCIAL HISTORY: , lives in [place]. Works as nurse. Nonsmoker. FAMILY HISTORY: Mother has had 2 NC and a quadruple bypass. Maternal grandfather from an NC. Maternal uncle has had multiple stents. Family members were all smokers and her mother is obese. DIAGNOSTICS/PROCEDURES/CRITICAL CARE TIME: The 12 lead EKG was interpreted by myself. Sinus mechanism normal, rate 63. See hard copy and/or "tracemaster" electronic copy for interpretation. Chest CT angiography: Negative for PE, benign left thyroid nodule per Dr. Post , radiology. DIFFERENTIAL DIAGNOSIS: The differential diagnosis for the patient's chest pain included but was not limited to myocardial ischemia, pulmonary embolus, chest wall pain, pleural inflammation, and pulmonary infectious causes. MEDICAL DECISION MAKING: This is a 46 y/o female presenting with exertional dyspnea, fatigue, and chest pain worsening over the past few weeks. She has an extensive family history of cardiac illness and has had a recent total right knee replacement. Her exam is unremarkable. Plan for IV, labs, and EKG. Reassessed patient and discussed workup thus far. EKG is unremarkable, labs show elevated D-Dimer 0.80. Plan for Chest CTA to rule out PE. Patient agrees to this plan. CTA is negative for PE. Patient will need a cardiology consultation due to significant cardiac family history and rheumatologic disease without prior cardiac workup. Cardiology paged. 1321: Reassessed patient and discussed lab findings and recommendation for consult with cardiology. 1336: Consulted with Dr. Salgado, cardiology. He will assess patient in the ED. 1406: We are still awaiting cardiology's assessment of the patient. 1500: Patient care signed out to Dr. Biswas at shift change pending cardiology evaluation and consult. Unless cardiology recommends admission she can follow up as an outpatient with [facility]. (Fidel Elmore) Other Provider: Signed out by Catarina at 1500 with plan for cardiology evaluation by Dr. Salgado. Dr. Salgado was in the emergency department at 3:30 p.m., he requested the patient be admitted observation status to him. (Jimmie Biswas) - Data Points Laboratory Results: Laboratory Results 03/21/17 11:00 03/21/17 11:00 03/21/17 03/21/17 03/21/17 11:00 11:00 11:00 WBC RBC Hgb Hct MCV MCH MCHC RDW Plt Count MPV Neut % (Auto) Lymph % (Auto) [place] % (Auto) Eos % (Auto) Baso % (Auto) Nucleat RBC Rel Count Absolute Neuts (auto) Absolute Lymphs (auto) Absolute Monos (auto) Absolute Eos (auto) Absolute Basos (auto) Absolute Nucleated RBC Immature Gran % Immature Gran # PT 12.8 SEC SEC (12.0-15.0) INR 0.97 (0.83-1.16) APTT 25.4 SEC SEC (23.0-38.0) D-Dimer 0.80 ug/mLFEU H ug/mLFEU (0.00-0.50) Sodium 141 mEq/L mEq/L (134-144) Potassium 4.0 mEq/L mEq/L (3.5-5.2) Chloride 103 mEq/L mEq/L (97-110) Carbon Dioxide 28 mEq/l mEq/l (22-31) Anion Gap 10 mEq/L mEq/L (8-16) BUN 19 mg/dL mg/dL (7-23) Creatinine 0.7 mg/dL mg/dL (0.6-1.0) Estimated GFR > 60 Glucose 97 mg/dL mg/dL (70-100) Calcium 9.1 mg/dL mg/dL (8.5-10.4) Troponin I < 0.012 ng/mL ng/mL (0.000-0.034) NT-Pro-B Natriuret Pep 131 pg/mL H pg/mL (0-125) Beta HCG, Qual NEGATIVE 03/21/17 11:00 WBC 4.83 10^3/uL 10^3/uL (3.80-9.50) RBC 4.45 10^6/uL 10^6/uL (4.18-5.33) Hgb 13.4 g/dL g/dL (12.6-16.3) Hct 39.3 % % (38.0-47.0) MCV 88.3 fL fL (81.5-99.8) MCH 30.1 pg pg (27.9-34.1) MCHC 34.1 g/dL g/dL (32.4-36.7) RDW 12.8 % % (11.5-15.2) Plt Count 249 10^3/uL 10^3/uL (150-400) MPV 8.9 fL fL (8.7-11.7) Neut % (Auto) 58.7 % % (39.3-74.2) Lymph % (Auto) 32.5 % % (15.0-45.0) Hudson % (Auto) 6.6 % % (4.5-13.0) Eos % (Auto) 1.4 % % (0.6-7.6) Baso % (Auto) 0.6 % % (0.3-1.7) Nucleat RBC Rel Count 0.0 % % (0.0-0.2) Absolute Neuts (auto) 2.83 10^3/uL 10^3/uL (1.70-6.50) Absolute Lymphs (auto) 1.57 10^3/uL 10^3/uL (1.00-3.00) Absolute Monos (auto) 0.32 10^3/uL 10^3/uL (0.30-0.80) Absolute Eos (auto) 0.07 10^3/uL 10^3/uL (0.03-0.40) Absolute Basos (auto) 0.03 10^3/uL 10^3/uL (0.02-0.10) Absolute Nucleated RBC 0.00 10^3/uL 10^3/uL (0-0.01) Immature Gran % 0.2 % % (0.0-1.1) Immature Gran # 0.01 10^3/uL 10^3/uL (0.00-0.10) PT INR APTT D-Dimer Sodium Potassium Chloride Carbon Dioxide Anion Gap BUN Creatinine Estimated GFR Glucose Calcium Troponin I NT-Pro-B Natriuret Pep Beta HCG, Qual Departure - Departure Disposition: [facility] Inpatient Acute Clinical Impression: Dyspnea Qualifiers: Dyspnea type: shortness of breath Qualified Code(s): R06.02 - Shortness of breath Chest pain Qualifiers: Chest pain type: other chest pain Qualified Code(s): R07.89 - Other chest pain Condition: Good Instructions: Chest Pain (ED) Additional Instructions: 1. Follow up with Dr. Salgado, cardiology, this week. 2. Your CT showed an incidental finding of a left thyroid nodule. This requires an ultrasound follow up with your PCP within the next month. 3. Return to the emergency department for severe pain, worsening shortness of breath, fever, or worsening of your condition. Referrals: Maria Elena Calvillo MD [Primary Care Provider] - As per Instructions Alphonso Salgado MD [Medical Doctor] - As per Instructions Report Scribed for: Fidel Elmore Report Scribed by: Tali Murray Date of Report: 03/21/17 Time of Report: 15:36
[2017-03-21] MEDS ORDERED: IOPAMIDOL (ISOVUE 370) 100 ML BTL IV ONE (11:55)
--- NOTE | 2017-03-21 17:15 | PDCARCONS ---
Cardiology Consult Reason for Consult: shortness of breath Chief Complaint: shortness of breath with limited activity Requesting Physician: ER physician History of Present Illness: Patient is a 46 y/o female with unremarkable past cardiovascular history - no CAD, HTN, HLP, or DM - who presents to ER with escalating symptoms of dyspnea. Symptoms have been noted for the past several weeks - about two weeks to be more exact. Patient is unable to walk up a hill without shortness of breath. Patient's family history (maternal) with premature CAD and . Throat tightness has also been noted in association with the dyspnea and chest tightness. Patient wanting to "ignore" the symptoms, but the limitations with activity have become rather dramatic. Patient questions if there is a GI source for the symptoms noted given long standing GERD. Patient has not noted any PND or orthopnea. Cholesterol, when last assessed, was not noted to be elevated. Remainder of the 12 point review of systems was negative. History Information - Allergies/Home Medication List Allergies/Adverse Reactions: No Known Allergies Allergy (Verified 03/21/17 10:47) Home Medications: Herbals/Supplements -Info Only 1 ea PO DAILY 03/21/17 [Last Taken Unknown] Ibuprofen [Motrin (*)] 200 - 800 mg PO Q6H PRN 03/21/17 [Last Taken 03/20/17] Multivitamins [Multivitamin (*)] 1 each PO DAILY 03/21/17 [Last Taken 03/21/17] Omeprazole 40 mg PO DAILY 03/21/17 [Last Taken 03/21/17] Zolpidem Tartrate [Ambien 5MG (*)] 5 mg PO HS PRN 03/21/17 [Last Taken 03/20/17] I have personally reviewed and updated: family history, medical history, social history, surgical history - Past Medical History arthritis - Surgical History Reports: no pertinent surgical hx - Family History Positive for: CAD, mother with history of CAD younger than 65, hypertension - Social History Smoking Status: Never smoked Alcohol Use: None Drug Use: None Cardiac History - Cardiac History Cardiac Risk Factors: family history of premature CAD Timing/Duration: Weeks Severity: moderate Severity Scale: 5 Location: substernal, central, shoulder Activities at Onset: activity Modifying Factors: improves with: breathing, lying down, rest Associated Symptoms: chest pain, malaise, shortness of breath, weakness DELON Risk Evaluation age greater or equal to 65: no greater or equal to 3 CAD risk factors: no known CAD(stenosis greater or eqaul to 50%): no ASA use in past 7 days: no severe angina(greater or equal to 2 episodes in 24hrs): no EKG ST changes greater or equal to 0.5mm: no positive cardiac marker: no Total Score: 0 DELON Score: 4.7% risk Physical Exam Temp Pulse Resp BP Pulse Ox 36.8 C 79 16 107/69 97 03/21/17 10:49 03/21/17 16:12 03/21/17 16:12 03/21/17 16:12 03/21/17 16:12 Constitutional: no apparent distress, appears nourished, not in pain Eyes: PERRL Ears, Nose, Mouth, Throat: moist mucous membranes, hearing normal Cardiovascular: regular rate and rhythym, no murmur, rub, or gallop, No JVD Peripheral Pulses: 2+: dorsalis-pedis (R), dorsalis-pedis (L) Respiratory: no respiratory distress, no rales or rhonchi, clear to auscultation Gastrointestinal: normoactive bowel sounds Skin: warm Musculoskeletal: full muscle strength, no muscle tenderness Neurologic: AAOx3, sensation intact bilaterally Psychiatric: interacting appropriately, not anxious, not encephalopathic Lab and Imaging 03/21/17 11:00 03/21/17 11:00 WBC 4.83 10^3/uL (3.80-9.50) 03/21/17 11:00 RBC 4.45 10^6/uL (4.18-5.33) 03/21/17 11:00 Hgb 13.4 g/dL (12.6-16.3) 03/21/17 11:00 Hct 39.3 % (38.0-47.0) 03/21/17 11:00 MCV 88.3 fL (81.5-99.8) 03/21/17 11:00 MCH 30.1 pg (27.9-34.1) 03/21/17 11:00 MCHC 34.1 g/dL (32.4-36.7) 03/21/17 11:00 RDW 12.8 % (11.5-15.2) 03/21/17 11:00 Plt Count 249 10^3/uL (150-400) 03/21/17 11:00 MPV 8.9 fL (8.7-11.7) 03/21/17 11:00 Neut % (Auto) 58.7 % (39.3-74.2) 03/21/17 11:00 Lymph % (Auto) 32.5 % (15.0-45.0) 03/21/17 11:00 [place] % (Auto) 6.6 % (4.5-13.0) 03/21/17 11:00 Eos % (Auto) 1.4 % (0.6-7.6) 03/21/17 11:00 Baso % (Auto) 0.6 % (0.3-1.7) 03/21/17 11:00 Nucleat RBC Rel Count 0.0 % (0.0-0.2) 03/21/17 11:00 Absolute Neuts (auto) 2.83 10^3/uL (1.70-6.50) 03/21/17 11:00 Absolute Lymphs (auto) 1.57 10^3/uL (1.00-3.00) 03/21/17 11:00 Absolute Monos (auto) 0.32 10^3/uL (0.30-0.80) 03/21/17 11:00 Absolute Eos (auto) 0.07 10^3/uL (0.03-0.40) 03/21/17 11:00 Absolute Basos (auto) 0.03 10^3/uL (0.02-0.10) 03/21/17 11:00 Absolute Nucleated RBC 0.00 10^3/uL (0-0.01) 03/21/17 11:00 Immature Gran % 0.2 % (0.0-1.1) 03/21/17 11:00 Immature Gran # 0.01 10^3/uL (0.00-0.10) 03/21/17 11:00 PT 12.8 SEC (12.0-15.0) 03/21/17 11:00 INR 0.97 (0.83-1.16) 03/21/17 11:00 APTT 25.4 SEC (23.0-38.0) 03/21/17 11:00 D-Dimer 0.80 ug/mLFEU (0.00-0.50) H 03/21/17 11:00 Sodium 141 mEq/L (134-144) 03/21/17 11:00 Potassium 4.0 mEq/L (3.5-5.2) 03/21/17 11:00 Chloride 103 mEq/L (97-110) 03/21/17 11:00 Carbon Dioxide 28 mEq/l (22-31) 03/21/17 11:00 Anion Gap 10 mEq/L (8-16) 03/21/17 11:00 BUN 19 mg/dL (7-23) 03/21/17 11:00 Creatinine 0.7 mg/dL (0.6-1.0) 03/21/17 11:00 Estimated GFR > 60 03/21/17 11:00 Glucose 97 mg/dL (70-100) 03/21/17 11:00 Calcium 9.1 mg/dL (8.5-10.4) 03/21/17 11:00 Troponin I < 0.012 ng/mL (0.000-0.034) 03/21/17 11:00 NT-Pro-B Natriuret Pep 131 pg/mL (0-125) H 03/21/17 11:00 Beta HCG, Qual NEGATIVE 03/21/17 11:00 Visualized and Interpreted Chest x-ray results: Yes Chest X-ray Interpretation: no infiltrate, normal EKG Interpretation: Positive for: normal sinsus rhythm A/P Assessment: Patient is a 46 y/o female with progressive dyspnea and associated chest discomfort. Given family history of premature CAD, patient with concerns that this might be CAD. In the ER today, no complaints, but the shortness of breath has been significant and acutely worse with less activity. Chest pains were noted yesterday with carrying the family member (granddaughter) up stairs. Normal ECG, no pathology on CT (to rule out PE) and no cardiac biomarker elevation noted. Plan: Would admit over night for echocardiogram, serial enzymes, and stress testing in am.
[2017-03-21] MEDS ORDERED: ONDANSETRON DISINTEGRATING 4 MG TAB PO PRN (17:39)
[2017-03-21] MEDS ORDERED: ONDANSETRON 4 MG/2 ML VIAL IVP PRN (17:39)
[2017-03-21] MEDS: ACETAMINOPHEN 325 MG TAB PO PRN (18:08)
[2017-03-21] MEDS ORDERED: IBUPROFEN 200 MG TAB PO PRN (19:42)
[2017-03-21] MEDS ORDERED: ZOLPIDEM TARTRATE 5 MG TAB PO SCH (21:00)
[2017-03-22] MEDS: ACETAMINOPHEN 325 MG TAB PO PRN (04:58)
[2017-03-22 05:31] LABS: ADD DIFF? NO; ADD MORPH? NO; ADD SCAN? NO; ATYPICAL LYMPHOCYTE FLAG 10 (0-99); FRAGMENT RBC FLAG 0 (0-99); HEMATOCRIT 36.5 % (38.0-47.0); HEMOGLOBIN 12.3 g/dL (12.6-16.3); LEFT SHIFT FLG 0 (0-99); LIPEMIA HEMOLYSIS FLAG 80 (0-99); MEAN CELL HEMOGLOBIN 30.2 pg (27.9-34.1); MEAN CELL HEMOGLOBIN CONCENTR. 33.7 g/dL (32.4-36.7); MEAN CELL VOLUME 89.7 fL (81.5-99.8); MEAN PLATELET VOLUME 9.1 fL (8.7-11.7); PLATELET CLUMPS FLAG 0 (0-99); PLATELET COUNT 232 10^3/uL (150-400); RED BLOOD CELL COUNT 4.07 10^6/uL (4.18-5.33); RED CELL DISTRIBUTION WIDTH 12.8 % (11.5-15.2)
[2017-03-22 05:39] LABS: INR 1.03 (0.83-1.16); PROTIME(PATIENT) 13.4 SEC (12.0-15.0)
[2017-03-22 05:40] LABS: APTT 26.3 SEC (23.0-38.0)
[2017-03-22 05:48] LABS: ANION GAP 12 mEq/L (8-16); CALCIUM 9.4 mg/dL (8.5-10.4); CARBON DIOXIDE 27 mEq/l (22-31); CHLORIDE 103 mEq/L (97-110); CREATININE 0.8 mg/dL (0.6-1.0); GLOMERULAR FILTRATION RATE > 60; GLUCOSE 91 mg/dL (70-100); POTASSIUM 4.4 mEq/L (3.5-5.2); SODIUM 142 mEq/L (134-144)
[2017-03-22 06:00] LABS: TROPONIN I < 0.012 ng/mL (0.000-0.034)
[2017-03-22 07:18] VITALS: O2SAT 96
[2017-03-22] MEDS ORDERED: PANTOPRAZOLE SODIUM 40 MG TAB PO SCH (09:00)
[2017-03-22] MEDS ORDERED: MULTIVITAMINS 1 EACH TAB PO SCH (09:00)
--- NOTE | 2017-03-22 09:09 | CPEKG ---
Heart Rate: 60 RR Interval: 1000 P-R Interval: 160 QRSD Interval: 102 QT Interval: 424 QTC Interval: 424 P Walworth: 68 QRS Walworth: 82 T Wave Walworth: 26 EKG Severity - NORMAL ECG - EKG Impression: SINUS RHYTHM Electronically Signed By: Mars Trevino 22-Mar-2017 11:48:57
--- NOTE | 2017-03-22 10:17 | ECHO ---
[id number] + + [address] : : [place] [address] : : [phone] + + Adult Echocardiographic Report + ------+ :Name: RONI GALVEZ LStudy Date: 03/22/2017 08:15 AM : : Hospital Admission Number: [id number] Locatio n: 213: :: 1970 Gender: Female Height: 69 in : :Age: 47 yrs Race: WH Weight: 178 lb : :Reason For Study: Dyspnea : : BSA: 2.0 meters 2 : + ------+ MMode/2D Measurements \T\ Calculations IVSd: 0.69 cm LVIDd: 5.2 cm FS: 38.2 % Ao root diam: 3.4 cm LVPWd: 0.55 cm LVIDs: 3.2 cm EDV(Teich): 128.4 ml LA dimension: 3.5 cm ESV(Teich): 41.0 ml EF(Teich): 68.1 % Normal Measurement Values: + + :LVIDd (3.5-5.7cm) IVSd (0.6-1.1cm) LVPWd (0.6-1.1cm) Aortic Root (2.0-3.7cm)Left Atrium (1.5-4.0cm): :LV Vol(d) (76-115ml) LV Vol(s) (29-48ml) Ejec Fraction (50-65%)PV Curtis (0.6- 1.2m/s) TV Curtis (0.4-1.0m/s) : :MV E Curtis (0.8-1.0m/s)MV A Curtis (0.3-1.0m/s)LVOT Curtis (0.7-1.2m/s) Asc Ao Curtis ( 0.9-1.8m/s) : + + Doppler Measurements \T\ Calculations MV E max curtis: 62.7 cm/sec Ao V2 max: 126.0 cm/sec MV A max curtis: 47.4 cm/sec Ao max P.4 mmHg MV E/A: 1.3 Left Ventricle The left ventricle is normal in size. There is normal left ventricular wall thickness. Left ventricular systolic function is normal. Ejection Fraction = 65-70%. The left ventricular ejection fraction is calculated at 68.1 %. No regional wall motion abnormalities noted. Right Ventricle The right ventricle is normal in size and function. Atria The left atrial size is normal. Right atrial size is normal. Mitral Valve The mitral valve is normal in structure and function. There is no mitral regurgitation noted. Tricuspid Valve Normal tricuspid valve. There is trace tricuspid regurgitation. Aortic Valve The aortic valve is trileaflet. The aortic valve opens well. There is no aortic stenosis. There is no aortic insufficiency. Pulmonic Valve The pulmonic valve is normal in structure and function. There is no pulmonic valvular regurgitation. Great Vessels The aortic root is normal size. Pericardium/Pleural There is no pericardial effusion. Conclusion A complete two-dimensional transthoracic echocardiogram was performed (2D, M-mode, Doppler and color flow Doppler). (1) Left ventricular systolic ejection fraction was normal (65-70%) - normal wall motion (2) No left ventricular hypertrophy (3) No diastolic dysfunction (4) Normal right ventricular size and function (5) Normal atrial dimensions (6) Grossly normal mitral valve (7) Trileaflet aortic valve without sclerosis or insufficiency (8) Grossly normal tricuspid with physiologic regurgitation - RVSP was not estimated in this study given poor envelope (9) Grossly normal pulmonic valve (10) No comparison echocardiograms Final Reading Physician: Pradeep Farah signed on 03/22/2017 10:15 AM Ordering Physician: Alphonso Salgado Performed By: Madeline Hernandez RDCS
[2017-03-22 11:47] VITALS: BP 114/67; PULSE 65; RESP 16; TEMP 99.1
--- NOTE | 2017-03-22 15:02 | PDCARPN ---
Cardiology Progress Note Chief Complaint: No complaints were voiced this morning. Assessment/Plan: Assessment: 47 y/o female with unremarkable personal cardiovascular history, but concerning family history, who presented to the ER yesterday with chief complaints of progressive dyspnea with limited exertion. Some chest pains had also been noted. ECG without ST/T wave changes noted (normal), and cardiac biomarkers were normal. Recommendations for 24 hour admission with Echocardiogram and MPI testing (versus ETT given "normal" baseline ECG). Echocardiogram with normal LVEF, wall motion, chamber dimensions, and valves. We had some concerns about PE with relatively recent knee surgery, and symptoms noted post rehab/PT. Last night, dyspnea was once again noted with limited activity, but this morning, these symptoms were somewhat improved. No elevation in RVSP was noted ( envelope was not great to see). Patient was initially scheduled for MPI, but given the "normal" ECG, non nuclear testing was recommended. Patient, for reasons that were not too clear, opted to leave prior to this testing being completed. Plan: (1) Would arrange for patient to have ETT in the outpatient setting (2) Would also consider MSCT (heart scan) for further risk stratification with imaging modality (3) Annual assessment of cholesterol and LFTs Subjective: Echocardiogram had been done earlier, but was not available to review with patient when she was seen. Reviewed/Discussed With: family, hospitalist, multidisciplinary team Objective: Vital Signs (8 Hrs) Temp Pulse Resp BP Pulse Ox 03/22/17 11:46 37.3 C 65 16 114/67 96 03/22/17 07:17 36.9 C 70 22 H 100/55 L 96 Intake/Output (24 Hrs) 03/21/17 03/22/17 03/23/17 05:59 05:59 05:59 Intake Total 300 Output Total 550 Balance -250 Intake: Oral (ml) 300 Output: Urine (ml) 550 Toilet 550 Other: Weight 80.8 kg Result Diagrams: 03/22/17 04:21 03/22/17 04:21 Cardiac Labs: Cardiac Lab Results (72 Hrs) 03/22/17 04:21 CK-MB (CK-2) Fraction 0.80 Troponin I < 0.012 Telemetry: normal sinus rhythm Echocardiogram: Grossly normal - Physical Exam Constitutional: WDWN, healthy appearing, no apparent distress Eyes: PERRL Ears, Nose, Mouth, Throat: moist mucous membranes Cardiovascular: regular rate and rhythm, no murmurs, no rubs, no gallops Peripheral Pulses: 2+: dorsalis-pedis (R), dorsalis-pedis (L) Respiratory: clear to auscultate bilat, no crackles Skin: no rashes, no edema Musculoskeletal: no muscular tenderness Neurologic: AAOx3, CN II-XII grossly intact Psychiatric: cooperative, interactive, following commands ICD10 Worksheet Patient Problems: Problems Problem Status Onset Acute post-operative pain Acute Chest pain Acute Dyspnea Acute Primary localized osteoarthritis of right knee Acute
--- NOTE | 2017-03-22 17:55 | ASDISCHSUM ---
Discharge Information Plan Status:Home with No Needs Medically Cleared to Leave: Discharge Date:03/22/2017 12:30 PM CM D/C Disposition:Against Medical Advice ADT D/C Disposition:Against Medical Advice Projected Discharge Date:03/22/2017 12:30 PM Transportation at D/C: Discharge Delay Reason: Follow-Up Date:03/22/2017 12:30 PM Discharge Slot: Final Diagnosis: Placement Information Patient Contact Information Contact Name:DASIA Relationship: [address] [place] Work Phone: City:[facility] Phone: State/Zip Code:[place] [address] Email: Financial Information Financial Class:HMO and PPO Plans Primary Plan Desc: OUT OF STATE PPO Primary Plan Number:[id number] Secondary Plan Desc: Secondary Plan Number: Assessment Information Intervention Information
== END 2017-03-22 12:30 | disposition left against medical advice (07) ==
LOC: F2W 17:02
PROVIDERS: ADMIT Internal Medicine Cardiovascular Disease; ATTEND Internal Medicine Cardiovascular Disease
DX: R07.89 Other chest pain (principal); R06.02 Shortness of breath; E04.1 Nontoxic single thyroid nodule; K21.9 Gastro-esophageal reflux disease without esophagitis; Z79.82 Long term (current) use of aspirin; Z82.49 Family history of ischemic heart disease and other diseases of the circulatory system; Z96.651 Presence of right artificial knee joint
CPT/HCPCS: 71275; 93005; 93306; 99285; G0378; Q9967